=== PATIENT | female | born 1985 | race Caucasian/White ===

== ENCOUNTER 2018-11-30 01:57 | Emergency (ER) | payer OTHER ==
[2018-11-30] MEDS ORDERED: PENICILLIN V K 250 MG TABLET. PO ONE (02:45)
[2018-11-30] MEDS ORDERED: KETOROLAC 30 MG/ML VIAL. INJ ONE (02:45)
== END 2018-11-30 03:15 | disposition home or self-care (01) ==
LOC: ER 01:57
DX: J32.0 Chronic maxillary sinusitis (principal); K02.9 Dental caries, unspecified; K08.89 Other specified disorders of teeth and supporting structures; G89.29 Other chronic pain; F17.200 Nicotine dependence, unspecified, uncomplicated
CPT/HCPCS: 81025; 96374; 99284; J1885